=== PATIENT | female | born 1955 | race Caucasian/White ===

== ENCOUNTER → 2018-12-12 | Day surgery (SDC) | payer OTHER ==
--- NOTE | 2018-12-13 17:21 | PATH ---
Surgical Pathology Report Patient Name: SULTANA ESPINOSA [facility]. Rec. #: [id number] /Age/Gender: 1955 (Age: 62) / F Account: [id number] Location: [facility] Taken: 12/12/2018 Received: 12/12/2018 Reported: 12/13/2018 Physicians: Brayan Munguia M.D. Specimen(s) Received A: RIGHT BREAST SPECIMEN - WITH CALCIFICATIONS B: RIGHT BREAST SPECIMEN - WITHOUT CALCIFICATIONS Clinical History Mammographic findings: Microcalcification, suspicious Final Diagnosis A. RIGHT BREAST SPECIMEN WITH CALCIFICATIONS, STEREOTACTIC BIOPSY: BREAST TISSUE WITH STROMAL FIBROSIS AND MICROCALCIFICATIONS. B. RIGHT BREAST SPECIMEN WITHOUT CALCIFICATIONS, STEREOTACTIC BIOPSY: BREAST TISSUE WITH FIBROADENOMATOID CHANGE, MILD USUAL DUCTAL HYPERPLASIA (UDH), MICROCYSTS, STROMAL FIBROSIS, AND MICROCALCIFICATIONS. Electronically Signed Peter Shepard M.D. Gross Description A. Received in formalin labeled "right breast with calcifications," are 2 lawrence-yellow, cylindrical portions of fibroadipose tissue measuring 1.8 and 2.5 cm in length and averaging 0.4 cm in diameter. The specimens are submitted in toto in one cassette. B. Received in formalin labeled "right breast without calcifications," is a 3.0 x 3.0 x 0.3 cm aggregate of abundant lawrence-yellow, irregular to cylindrical portions of fibroadipose tissue. The formalin is filtered and the specimen is entirely submitted in 2 cassettes. Time to formalin fixation: 5 minutes Total formalin fixation time: Approximately 8 hours. /12/12/201812/12/2018
== END | disposition home or self-care (01) ==
LOC: FMAMMOTONE 08:09
PROVIDERS: ATTEND Physician Assistant
PROC: 0HBT3ZX Excision of Right Breast, Percutaneous Approach, Diagnostic (ICD-10-PCS; principal; 2018-12-12)
DX: N60.11 Diffuse cystic mastopathy of right breast (principal); N60.21 Fibroadenosis of right breast; N60.31 Fibrosclerosis of right breast; N60.81 Other benign mammary dysplasias of right breast; N64.89 Other specified disorders of breast; R92.1 Mammographic calcification found on diagnostic imaging of breast
CPT/HCPCS: 19081; 87899; 88305-TC; A4648

== ENCOUNTER 2024-05-14 16:25 | Emergency (ER) | payer OTHER ==
[2024-05-14 17:42] VITALS: RESP 18; TEMP 98.2; BMI 29.2
[2024-05-14 18:42] LABS: BASO % 0.6 % (0-2.0); HEMATOCRIT 42.3 % (32.4-45.2); HEMOGLOBIN 13.9 GM/dL (10.7-15.3); LYMPH % 33.6 % (8-40); MCH 31.5 pg (25.7-33.7); MCHC 32.8 g/dl (32.0-36.0); MEAN CELL VOLUME 96.1 fl (80-96); MEAN PLT VOLUME 7.3 fl (7.5-11.1); MONO % 7.5 % (3.8-10.2); NEUT % 57.3 % (42.8-82.8); PLATELET COUNT 246 10^3/uL (134-434); WHITE BLOOD COUNT 7.4 K/mm3 (4.0-10.0)
[2024-05-14 18:55] LABS: POTASSIUM 4.2 mmol/L (3.5-5.1)
[2024-05-14 18:58] LABS: ALBUMIN 3.9 g/dl (3.4-5.0); BLOOD UREA NITROGEN 22.7 mg/dL (7-18); CALCIUM 10.2 mg/dL (8.5-10.1)
[2024-05-14 19:01] LABS: CREATININE 0.5 mg/dL (0.55-1.3)
[2024-05-14 19:03] LABS: BILIRUBIN,TOTAL 0.5 mg/dL (0.2-1); TOT PROT 7.2 g/dl (6.4-8.2)
[2024-05-14 22:13] VITALS: BP 153/78; PULSE 59
== END 2024-05-14 23:46 | disposition home or self-care (01) ==
LOC: JER 16:25
DX: R41.0 Disorientation, unspecified (principal); R07.9 Chest pain, unspecified; R47.81 Slurred speech; R29.898 Other symptoms and signs involving the musculoskeletal system; E83.52 Hypercalcemia; E86.0 Dehydration
CPT/HCPCS: 36415; 80053; 83690; 84484; 85025; 93005; 93010; 99284-25